=== PATIENT | female | born 1970 | race Caucasian/White ===

== ENCOUNTER 2019-12-19 02:21 | Emergency (ER) | payer MEDICAID ==
[2019-12-19] MEDS ORDERED: Ondansetron 4 MG/2 ML SDV IVPUSH ONE (02:34)
[2019-12-19] MEDS ORDERED: Sodium Chloride 0.9% 1,000 ML IV ONE (02:34)
--- NOTE | 2019-12-19 02:40 | EDM.PDOC ---
ED HPI GENERAL MEDICAL PROBLEM - General Chief Complaint: Headache Stated Complaint: HEAD PRESSURE Time Seen by Provider: 12/19/19 02:34 Source of Information: Reports: Patient History Limitations: Reports: No Limitations - History of Present Illness INITIAL COMMENTS - FREE TEXT/NARRATIVE: gives h/o DDD in neck and been trying to crack it to release pinch nerve today, took her flexeril her normal Rx but not helping. got nauseous few hours ago tried to sleep but unable. Frontal Headache Pain Score (Numeric/FACES): 8 - Related Data Allergies Allergy/AdvReac Type Severity Reaction Status Date / Time codeine Allergy Stomach Verified 12/19/19 02:39 Upset ketorolac [From Toradol] Allergy Rash Verified 12/19/19 02:39 Home Meds: Home Meds Omeprazole Magnesium [Prilosec Otc] 20 mg PO DAILY 12/19/19 [History] Ondansetron [Zofran ODT] 4 mg PO Q8H PRN 12/19/19 [History] buPROPion [Wellbutrin SR] 150 mg PO DAILY 12/19/19 [History] oxyCODONE 2 tab PO Q6H PRN 12/19/19 [History] ED ROS GENERAL - Review of Systems Review Of Systems: Comprehensive ROS is negative, except as noted in HPI. - Physical Exam Exam: See Below Exam Limited By: No Limitations General Appearance: Alert, WD/WN, Mild Distress, Other (retched few times) Eye Exam: Bilateral Eye: PERRL (pupils ER @ 4mm) Ears: Hearing Grossly Normal Throat/Mouth: Normal Voice, No Airway Compromise Head Exam: Atraumatic Neck: Non-Tender, Full Range of Motion Respiratory/Chest: No Respiratory Distress Cardiovascular: Regular Rate, Rhythm GI/Abdominal: Soft, Non-Tender Neuro Exam (Abbreviated): Alert, Oriented, Normal Cognition, Normal Gait, No Motor/Sensory Deficits Psychiatric: Anxious Skin Exam: Warm, Dry, Normal Color Course - Vital Signs Last Recorded V/S: Last Vital Signs Temp 36.4 C 12/19/19 02:47 Pulse 118 H 12/19/19 02:47 Resp 20 12/19/19 02:47 BP 115/54 L 12/19/19 02:47 Pulse Ox 100 12/19/19 02:47 - Orders/Labs/Meds Orders: Active Orders 24 hr Category Date Time Status Acetaminophen/HYDROcodone [[place] 325-10 MG] Med 12/19/19 03:28 Once 1 tab PO ONETIME ONE Sodium Chloride 0.9% [Normal Saline] 1,000 ml Med 12/19/19 02:34 Active IV .BOLUS Medication Orders Sodium Chloride (Normal Saline) 1,000 mls @ 999 mls/hr IV .BOLUS ONE Stop: 12/19/19 03:34 Last Admin: 12/19/19 02:42 Dose: 999 mls/hr Meds: Medications Generic Name Dose Route Start Last Admin Trade Name Freq PRN Reason Stop Dose Admin Sodium Chloride 1,000 mls @ 999 mls/hr 12/19/19 02:34 12/19/19 02:42 Normal Saline IV 12/19/19 03:34 999 mls/hr .BOLUS ONE Administration Discontinued Medications Generic Name Dose Route Start Last Admin Trade Name Freq PRN Reason Stop Dose Admin Metoclopramide HCl 10 mg 12/19/19 02:46 12/19/19 02:53 Reglan IVPUSH 12/19/19 02:47 10 mg ONETIME ONE Administration Ondansetron HCl 4 mg 12/19/19 02:34 12/19/19 02:42 Zofran IVPUSH 12/19/19 02:35 4 mg ONETIME ONE Administration - Re-Assessments/Exams Free Text/Narrative Re-Assessment/Exam: 12/19/19 03:28 re-exam; feeling much better s/p IV + zofran but head still pounding. Departure - Departure Time of Disposition: 03:29 Disposition: Home, Self-Care 01 Condition: Good Clinical Impression: Tension-type headache - Discharge Information Forms: ED Department Discharge Additional Instructions: 1) rest and avoid strenuous activities next 24 hours 2) follow up with family doctor Sepsis Event Note - Focused Exam Vital Signs: Vital Signs Temp Pulse Resp BP Pulse Ox 12/19/19 02:47 36.4 C 118 H 20 115/54 L 100 Date Exam was Performed: 12/19/19 Time Exam was Performed: 03:28 - My Orders Last 24 Hours: My Active Orders 12/19/19 02:34 Sodium Chloride 0.9% [Normal Saline] 1,000 ml IV .BOLUS 12/19/19 03:28 Acetaminophen/HYDROcodone [[place] 325-10 MG] 1 tab PO ONETIME ONE - Assessment/Plan Last 24 Hours: My Active Orders 12/19/19 02:34 Sodium Chloride 0.9% [Normal Saline] 1,000 ml IV .BOLUS 12/19/19 03:28 Acetaminophen/HYDROcodone [[place] 325-10 MG] 1 tab PO ONETIME ONE
[2019-12-19] MEDS ORDERED: Metoclopramide 10 MG/2 ML SDV IVPUSH ONE (02:46)
[2019-12-19] MEDS ORDERED: Acetaminophen/HYDROcodone 325-10 MG Tab PO ONE (03:28)
== END 2019-12-19 04:00 | disposition home or self-care (01) ==
LOC: DL.ED 02:21
DX: G44.209 Tension-type headache, unspecified, not intractable (principal); Z88.5 Allergy status to narcotic agent; Z88.6 Allergy status to analgesic agent; Z79.899 Other long term (current) drug therapy
CPT/HCPCS: 96361; 96374; 96375; 99284; A9270; J2405; J2765; J7030

== ENCOUNTER 2020-12-30 04:36 | Emergency (ER) | payer MEDICAID ==
[2020-12-30] MEDS ORDERED: Ondansetron 4 MG/2 ML SDV IVPUSH ONE (04:39)
--- NOTE | 2020-12-30 05:09 | EDM.PDOC ---
ED HPI GENERAL MEDICAL PROBLEM - General Chief Complaint: Neck Problem Stated Complaint: SHOOTING PAIN FROM HEAD DOWN Time Seen by Provider: 12/30/20 04:59 Source of Information: Reports: Patient, Old Records, RN, RN Notes Reviewed - History of Present Illness INITIAL COMMENTS - FREE TEXT/NARRATIVE: Ary is a 50 y/o female who present to the ED via personal vehicle with complaints of right neck muscle tightness and right-sided headache. The patient reports her symptoms began at approximately 1500 yesterday and have progressively worsened since that time. She reports she has been receiving physical therapy for right upper extremity weakness, and feels as though the therapeutic massage she received has overworked her neck muscles. She notes the headache originates in the right occipital-parietal region and radiates behind her right eye and right jaw. Additionally, she reports radiation of pain from the right lateral neck down into her right lateral thorax. She characterizes the pain as a tight, spasm. The patient states she has taken multiple doses of ibuprofen and acetaminophen, as well as a dose of Benadryl prior to bedtime. She was able to fall asleep but awoke from pain at approximately 0300. She is now experiencing nausea due to the pain. She denies history of injury to the area and has sustained no falls. Posterior Neck Pain Score (Numeric/FACES): 10 - Related Data Allergies Allergy/AdvReac Type Severity Reaction Status Date / Time codeine Allergy Stomach Verified 12/30/20 04:48 Upset ketorolac [From Toradol] Allergy Rash Verified 12/30/20 04:48 Home Meds: Home Meds Omeprazole Magnesium [Prilosec Otc] 20 mg PO DAILY 12/19/19 [History] Ondansetron [Zofran ODT] 4 mg PO Q8H PRN 12/19/19 [History] buPROPion [Wellbutrin SR] 150 mg PO DAILY 12/19/19 [History] oxyCODONE 2 tab PO Q6H PRN 12/19/19 [History] Past Medical History Gastrointestinal History: Reports: GERD Musculoskeletal History: Reports: Back Pain, Chronic, Other (See Below) Other Musculoskeletal History: DDD Psychiatric History: Reports: Anxiety, Depression - Past Surgical History GI Surgical History: Reports: Appendectomy Female Surgical History: Reports: Hysterectomy, Oophorectomy Musculoskeletal Surgical History: Reports: None Social & Family History - Family History Family Medical History: No Pertinent Family History - Tobacco Use Tobacco Use Status *Q: Current Every Day Tobacco User Years of Tobacco use: 30 Packs/Tins Daily: 0.5 - Caffeine Use Caffeine Use: Reports: Coffee, Energy Drinks, Soda, Tea, Other - Recreational Drug Use Recreational Drug Use: No ED ROS GENERAL - Review of Systems Review Of Systems: Comprehensive ROS is negative, except as noted in HPI. - Physical Exam Exam: See Below Exam Limited By: No Limitations General Appearance: Alert, Mild Distress (Active emesis), Thin Eye Exam: Bilateral Eye: EOMI, PERRL (4mm) Throat/Mouth: Normal Inspection, Normal Oropharynx, Normal Voice, No Airway Compromise Head Exam: Atraumatic, Normocephalic Neck: Supple, Limited Range of Motion (Lateral rotation of head limited to 45 degrees, bilaterally, due to pain; Patient states this is chronic), Tender Lateral. No: Tender Midline Respiratory/Chest: No Respiratory Distress, Lungs Clear, Normal Breath Sounds, No Accessory Muscle Use, Chest Non-Tender Cardiovascular: Normal Peripheral Pulses, Regular Rate, Rhythm, No Edema, No Gallop, No JVD, No Murmur, No Rub GI/Abdominal: Normal Bowel Sounds, Soft, Non-Tender, No Distention, No Abnormal Bruit, No Mass, Pelvis Stable Neuro Exam (Abbreviated): Alert, Oriented, CN II-XII Intact, Normal Cognition, Normal Gait, No Motor/Sensory Deficits Back Exam: Decreased Range of Motion, Muscle Spasm (To right laterl upper back). No: CVA Tenderness (L), CVA Tenderness (R) Extremities: Normal Inspection, Normal Range of Motion, Non-Tender, No Pedal Edema, Normal Capillary Refill, Other (No right upper extremity weakness noted) Psychiatric: Anxious, Tearful, Other (Patient noted to be gagging self with fingers to "relieve her feelings of nausea." ) Skin Exam: Warm, Dry, Intact, Normal Color, No Rash. No: Ecchymosis, Erythema, Jaundice, Mottled, Pallor, Petechiae Course - Vital Signs Last Recorded V/S: Last Vital Signs Temp 96.9 F 12/30/20 04:46 Pulse 82 12/30/20 04:46 Resp 20 12/30/20 04:46 BP 152/101 H 12/30/20 04:46 Pulse Ox 98 12/30/20 04:46 - Orders/Labs/Meds Meds: Medications Discontinued Medications Generic Name Dose Route Start Last Admin Trade Name Rafa PRN Reason Stop Dose Admin Metoclopramide HCl 10 mg 12/30/20 05:58 12/30/20 06:06 Metoclopramide 10 Mg/2 Ml Sdv IVPUSH 12/30/20 05:59 10 mg ONETIME ONE Administration Ondansetron HCl 4 mg 12/30/20 04:39 12/30/20 04:55 Ondansetron 4 Mg/2 Ml Sdv IVPUSH 12/30/20 04:40 4 mg ONETIME ONE Administration Orphenadrine Citrate 60 mg 12/30/20 05:17 12/30/20 05:27 Orphenadrine 60 Mg/2 Ml Inj IM 12/30/20 05:18 60 mg ONETIME ONE Administration Tramadol HCl 50 mg 12/30/20 05:59 12/30/20 06:06 Tramadol 50 Mg Tab PO 12/30/20 06:00 50 mg ONETIME ONE Administration - Re-Assessments/Exams Free Text/Narrative Re-Assessment/Exam: 12/30/20 Zofran 4mg IVP administered due to active emesis upon arrival to ED. Norflex IM administered following history and examination. Patient verbalized improvement in muscle tightness, but still reports nausea and headache. Will treat with Reglan and Ultram. Departure - Departure Time of Disposition: 06:33 Disposition: Home, Self-Care 01 Condition: Good Clinical Impression: Headache, cervicogenic Nausea & vomiting Qualifiers: Vomiting type: bilious vomiting Qualified Code(s): R11.14 - Bilious vomiting - Discharge Information *PRESCRIPTION DRUG MONITORING PROGRAM REVIEWED*: Not Applicable *COPY OF PRESCRIPTION DRUG MONITORING REPORT IN PATIENT JONAH: Not Applicable Instructions: Nausea and Vomiting, Adult, [id number], Cervicogenic Headache Forms: ED Department Discharge Additional Instructions: Rx: cyclobenzaprine 1.) Follow up with your physical therapist regarding today's visit. 2.) You may take ibuprofen (Advil/Motrin) 400mg every six hours, as headache persists. You may also take acetaminophen (Tylenol) 650mg every six hours, as pain persists. You may stagger these medications so you are receiving a dose every three hours. 3.) You may alternate head and ice to the right neck to help with muscle tightness. 4.) Drink plenty of water to stay hydrated. Sepsis Event Note (ED) - Evaluation Sepsis Screening Result: No Definite Risk - Focused Exam Vital Signs: Vital Signs Temp Pulse Resp BP Pulse Ox 12/30/20 04:46 96.9 F 82 20 152/101 H 98
[2020-12-30] MEDS ORDERED: Orphenadrine 60 MG/2 ML Inj IM ONE (05:17)
[2020-12-30] MEDS ORDERED: Metoclopramide 10 MG/2 ML SDV IVPUSH ONE (05:58)
[2020-12-30] MEDS ORDERED: traMADol 50 MG Tab PO ONE (05:59)
== END 2020-12-30 06:55 | disposition home or self-care (01) ==
LOC: DL.ED 04:36
DX: R51.9 Headache, unspecified (principal); R11.10 Vomiting, unspecified; K21.9 Gastro-esophageal reflux disease without esophagitis; Z72.0 Tobacco use; Z79.899 Other long term (current) drug therapy; Z88.6 Allergy status to analgesic agent; Z88.5 Allergy status to narcotic agent
CPT/HCPCS: 96372; 96374; 96375; 99283; A9270; J2360; J2405; J2765